=== PATIENT | female | born 1985 | race Two or more races ===

== ENCOUNTER 2020-06-14 16:42 | Emergency (ER) | payer OTHER, MEDICAID ==
[~2020-06-14] VITALS: Ht 162.6 cm; Wt 68.0 kg
[2020-06-14 16:50] VITALS: BP 126/76
== END 2020-06-14 19:28 | disposition home or self-care (01) ==
LOC: ER 16:42
DX: H57.89 Other specified disorders of eye and adnexa (principal); Z53.21 Procedure and treatment not carried out due to patient leaving prior to being seen by health care provider